=== PATIENT | female | born 1950 | race Caucasian/White ===

== ENCOUNTER 2018-02-24 10:10 | Outpatient (CLI) | payer MEDICARE, BC ==
[2018-02-24 17:46] LABS: BASOPHILS % (AUTO) 0.4 %; EOSINOPHILS # (AUTO) 0.2 10^3/uL (0.0-0.7); EOSINOPHILS % (AUTO) 3.5 %; HGB - HEMOGLOBIN 10.6 g/dL (12.0-16.0); LYMPHOCYTES # (AUTO) 2.1 10^3/uL (1.5-3.5); LYMPHOCYTES % (AUTO) 34.5 %; MEAN CORPUSCULAR HEMOGLOBIN 23.4 pg (27.0-31.0); MEAN CORPUSCULAR HGB CONC 31.9 g/dL (32.0-36.0); MEAN CORPUSCULAR VOLUME 73.5 fL (81.0-99.0); MEAN PLATELET VOLUME 7.9 fL (7.9-10.8); MONOCYTES # (AUTO) 0.5 10^3/uL (0.0-1.0); MONOCYTES % (AUTO) 7.6 %; NEUTROPHILS # (AUTO) 3.3 10^3/uL (1.5-6.6); PLT - PLATELET COUNT 404 10^3/uL (130-450); RED BLOOD COUNT 4.52 10^6/uL (4.20-5.40); RED CELL DISTRIBUTION WIDTH 17.8 % (12.0-15.0); WHITE BLOOD COUNT 6.2 x10^3/uL (4.8-10.8)
[2018-02-24 18:33] LABS: ALBUMIN/GLOBULIN RATIO 1.1 (1.0-2.2); ALKALINE PHOSPHATASE 70 IU/L (42-121); ALT ALANINE AMINOTRANSFERASE 17 IU/L (10-60); AST ASPARTATE AMINOTRANSFERASE 25 IU/L (10-42); BILIRUBIN,TOTAL 0.6 mg/dL (0.2-1.0); BUN - BLOOD UREA NITROGEN 12 mg/dL (6-20); CALCIUM 8.9 mg/dL (8.5-10.3); CARBON DIOXIDE - CO2 28 mmol/L (21-32); CHLORIDE 100 mmol/L (101-111); CHOL/HDL RATIO 3.3 (<4.4); CHOLESTEROL 228 mg/dL; CREATININE 0.7 mg/dL (0.4-1.0); GFR - MDRD 84 (>89); GLUCOSE 101 mg/dL (70-100); HDL CHOLESTEROL 70 mg/dL; LDL CHOLESTEROL,CALCULATED 128 mg/dL; LDL/HDL RATIO 1.8 (<4.4); SODIUM 136 mmol/L (135-145); TOTAL PROTEIN 7.5 g/dL (6.7-8.2); VLDL CHOLESTEROL 30 mg/dL
== END 2018-02-24 10:11 | disposition home or self-care (01) ==
LOC: LAB.F 10:10
PROVIDERS: ATTEND Nurse Practitioner Family
DX: E78.5 Hyperlipidemia, unspecified (principal); F32.9 Major depressive disorder, single episode, unspecified
CPT/HCPCS: 36415; 80053; 80061; 83721; 84443; 85025

== ENCOUNTER 2018-03-11 15:22 | Outpatient (CLI) | payer MEDICARE, BC ==
[2018-03-11 17:34] LABS: BASOPHILS # (AUTO) 0.1 10^3/uL (0.0-0.1); BASOPHILS % (AUTO) 1.2 %; EOSINOPHILS # (AUTO) 0.2 10^3/uL (0.0-0.7); EOSINOPHILS % (AUTO) 3.1 %; HGB - HEMOGLOBIN 10.9 g/dL (12.0-16.0); LYMPHOCYTES # (AUTO) 2.1 10^3/uL (1.5-3.5); LYMPHOCYTES % (AUTO) 36.8 %; MEAN CORPUSCULAR HGB CONC 31.7 g/dL (32.0-36.0); MEAN CORPUSCULAR VOLUME 75.7 fL (81.0-99.0); MEAN PLATELET VOLUME 7.9 fL (7.9-10.8); MONOCYTES # (AUTO) 0.5 10^3/uL (0.0-1.0); MONOCYTES % (AUTO) 8.2 %; NEUTROPHILS # (AUTO) 2.9 10^3/uL (1.5-6.6); NEUTROPHILS % (AUTO) 50.7 %; PLT - PLATELET COUNT 397 10^3/uL (130-450); RED BLOOD COUNT 4.52 10^6/uL (4.20-5.40); RED CELL DISTRIBUTION WIDTH 17.7 % (12.0-15.0); WHITE BLOOD COUNT 5.8 x10^3/uL (4.8-10.8)
== END 2018-03-11 15:23 | disposition home or self-care (01) ==
LOC: LAB.F 15:22
PROVIDERS: ATTEND Nurse Practitioner Family
DX: D64.9 Anemia, unspecified (principal)
CPT/HCPCS: 36415; 85025

== ENCOUNTER 2018-03-18 13:45 | Outpatient (CLI) | payer MEDICARE, BC ==
[2018-03-18 17:47] LABS: % IRON SATURATION 10 % (20-50); IRON 38 ug/dL (28-170); TOTAL IRON BINDING CAPACITY 391 ug/dL (250-450); TRANSFERRIN 279 mg/dL (192-382)
[2018-03-18 18:05] LABS: FOLATE 20.11 ng/mL (5.90 - >24.8)
== END 2018-03-18 13:46 | disposition home or self-care (01) ==
LOC: LAB.F 13:45
PROVIDERS: ATTEND Nurse Practitioner Family
DX: D64.9 Anemia, unspecified (principal)
CPT/HCPCS: 36415; 82607; 82746; 83540; 84466

== ENCOUNTER 2018-04-15 10:57 | Outpatient (CLI) | payer MEDICARE, BC ==
--- NOTE | 2018-04-15 16:51 | XRAY Report ---
Procedure Date: 04/15/2018 Accession Number: [id number] / [id number] Procedure: XRS - Knee 3 View RT CPT Code: FULL RESULT: EXAM: Knee 3 View RT DATE: 04/15/2018 11:12 AM CLINICAL HISTORY: KNEE PAIN, RIGHT, ACUTE, CHRONIC COMPARISON: None. TECHNIQUE: 3 views. FINDINGS: Bones: Normal. No fractures or bone lesions. Joints: Narrowing predominantly of the medial femoral tibial compartment. Soft Tissues: Normal. No soft tissue swelling. IMPRESSION: Mild osteoarthrosis most pronounced in the medial femoral tibial compartment. No acute fracture or dislocation. RADIA
== END 2018-04-15 10:58 | disposition home or self-care (01) ==
LOC: DI.S 10:57
PROVIDERS: ATTEND Nurse Practitioner Family
DX: M17.11 Unilateral primary osteoarthritis, right knee (principal)

== ENCOUNTER 2018-11-24 08:00 | Outpatient (CLI) | payer BC, MEDICARE ==
[2018-11-24 17:36] LABS: BILIRUBIN,URINE NEGATIVE (NEGATIVE); GLUCOSE, URINE (UA) NEGATIVE (NEGATIVE); KETONES,URINE (UA) NEGATIVE (NEGATIVE); LEUKOCYTE ESTERASE, URINE LARGE (NEGATIVE); NITRITE,URINE POSITIVE (NEGATIVE); OCCULT BLOOD,URINE SMALL (NEGATIVE); PH,URINE 6.5 PH (5.0-7.5); PROTEIN,URINE 100 mg/dL (NEGATIVE); UROBILINOGEN,URINE 0.2 (NORMAL) E.U./dL (NORMAL)
[2018-11-24 17:44] LABS: BACTERIA,URINE Moderate /HPF (None Seen); CLARITY,URINE CLOUDY (CLEAR); SQUAMOUS EPITHELIAL CELL,UR FEW Squamous (<= Few)
== END 2018-11-24 23:59 | disposition home or self-care (01) ==
LOC: LAB.R 08:00
PROVIDERS: ATTEND Nurse Practitioner Family
DX: N39.0 Urinary tract infection, site not specified (principal)
CPT/HCPCS: 81001; 87086; 87181

== ENCOUNTER 2019-06-26 08:00 | Outpatient (CLI) | payer MEDICARE | END 2019-06-26 08:01 | disposition home or self-care (01) | LOC: LAB.F 08:00 | PROVIDERS: ATTEND Physician Assistant Medical | DX: N39.0 Urinary tract infection, site not specified (principal) | CPT/HCPCS: 81002 ==

== ENCOUNTER 2019-06-26 15:20 | Outpatient (CLI) | payer MEDICARE | END 2019-06-26 15:21 | disposition home or self-care (01) | LOC: LAB.R 15:20 | PROVIDERS: ATTEND Physician Assistant Medical | DX: N39.0 Urinary tract infection, site not specified (principal) | CPT/HCPCS: 87086 ==

== ENCOUNTER 2019-07-27 17:08 | Emergency (ER) | payer MEDICARE ==
--- NOTE | 2019-07-27 17:40 | ED Physician Documentation ---
History of Present Illness - Stated complaint Stated Complaint: VOMITING BLOODY/NAUSEA - Chief complaint Chief Complaint: Abd Pain - Additonal information Additional information: This is a 68-year-old female who presents with blood in her vomit and stool for 36 hours. Patient states she began developing some generalized abdominal discomfort around 36 hours ago she is had multiple episodes of vomiting with bright red blood in it, and she is also had blood with her bowel movements. She states is been pretty constant over the last 36 hours. She is never had GI bleeding before. PD PAST MEDICAL HISTORY - Allergies Allergies/Adverse Reactions: Allergies Allergy/AdvReac Type Severity Reaction Status Date / Time No Known Drug Allergies Allergy Verified 07/27/19 17:31 Results - Vitals Vitals: Vital Signs - 24 hr 07/27/19 07/27/19 07/27/19 17:31 18:00 18:30 Temperature 37.1 C Heart Rate 83 77 74 Respiratory 18 21 15 Rate Blood Pressure 122/69 160/82 H 159/95 H O2 Saturation 95 99 95 07/27/19 07/27/19 19:00 19:51 Temperature 36.7 C Heart Rate 74 79 Respiratory 16 12 Rate Blood Pressure 162/79 H 166/83 H O2 Saturation 93 99 Oxygen O2 Source Room air - Labs Labs: Laboratory Tests 07/27/19 07/27/19 07/27/19 17:51 18:05 18:05 WBC 8.1 RBC 4.59 Hgb 12.7 Hct 39.6 MCV 86.3 MCH 27.7 MCHC 32.1 RDW 14.2 Plt Count 414 MPV 9.3 Neut # (Auto) 4.7 Lymph # (Auto) 2.4 [place] # (Auto) 0.7 Eos # (Auto) 0.1 Baso # (Auto) 0.1 Absolute Nucleated RBC 0.00 Nucleated RBC % 0.0 PT 12.9 H INR 1.1 Sodium Potassium Chloride Carbon Dioxide Anion Gap BUN Creatinine Estimated GFR (MDRD) Glucose Calcium Total Bilirubin AST ALT Alkaline Phosphatase Total Protein Albumin Globulin Albumin/Globulin Ratio Lipase Urine Color YELLOW Urine Clarity CLEAR Urine pH 8.5 H Ur Specific [place] 1.015 Urine Protein NEGATIVE Urine Glucose (UA) NEGATIVE Urine Ketones NEGATIVE Urine Occult Blood NEGATIVE Urine Nitrite NEGATIVE Urine Bilirubin NEGATIVE Urine Urobilinogen 0.2 (NORMAL) Ur Leukocyte Esterase TRACE H Urine RBC 0-5 Urine WBC 4-5 Ur Squamous Epith Cells RARE Squamous Urine Bacteria Rare Ur Microscopic Review INDICATED Urine Culture Comments INDICATED 07/27/19 18:05 WBC RBC Hgb Hct MCV MCH MCHC RDW Plt Count MPV Neut # (Auto) Lymph # (Auto) [place] # (Auto) Eos # (Auto) Baso # (Auto) Absolute Nucleated RBC Nucleated RBC % PT INR Sodium 137 Potassium 3.9 Chloride 100 L Carbon Dioxide 27 Anion Gap 10.0 BUN 10 Creatinine 0.7 Estimated GFR (MDRD) 84 L Glucose 108 H Calcium 9.7 Total Bilirubin 1.0 AST 23 ALT 19 Alkaline Phosphatase 73 Total Protein 8.0 Albumin 4.3 Globulin 3.7 Albumin/Globulin Ratio 1.2 Lipase 26 Urine Color Urine Clarity Urine pH Ur Specific [place] Urine Protein Urine Glucose (UA) Urine Ketones Urine Occult Blood Urine Nitrite Urine Bilirubin Urine Urobilinogen Ur Leukocyte Esterase Urine RBC Urine WBC Ur Squamous Epith Cells Urine Bacteria Ur Microscopic Review Urine Culture Comments Departure - Departure Disposition: Home, Self Care Clinical Impression: Bloody vomitus Qualifiers: Nausea presence: with nausea Qualified Code(s): K92.0 - Hematemesis Condition: Good Instructions: ED Abdominal Pain Unkn Cause, ED Hematochezia Stable Follow-Up: Ester Pandey PA-C [Primary Care Provider] - Within 3 Days Comments: You were seen today for some blood in your stool and vomit, Your blood counts appear stable we do not see signs of bleeding at this time. If you develop persistent bleeding, persistent vomiting, increasing abdominal pain, lightheadedness, generalized weakness, or other concerning symptoms please return to the emergency department. Otherwise please follow-up with your primary care provider as soon as possible for recheck and repeat labs. Your CT scan today had some incidental findings, you have a complex cyst on your left ovary, which should get a follow-up ultrasound, you also have a possible abnormality in your pancreas, which may need a follow-up MRI. Please review the CT scan with your primary care provider to review these findings.
[2019-07-27] MEDS ORDERED: ONDANSETRON 4 MG/2 ML VIAL IVP STA (17:51)
[2019-07-27 18:00] LABS: BILIRUBIN,URINE NEGATIVE (NEGATIVE); GLUCOSE, URINE (UA) NEGATIVE (NEGATIVE); KETONES,URINE (UA) NEGATIVE (NEGATIVE); LEUKOCYTE ESTERASE, URINE TRACE (NEGATIVE); NITRITE,URINE NEGATIVE (NEGATIVE); OCCULT BLOOD,URINE NEGATIVE (NEGATIVE); PH,URINE 8.5 PH (5.0-7.5); PROTEIN,URINE NEGATIVE (NEGATIVE); UROBILINOGEN,URINE 0.2 (NORMAL) E.U./dL (NORMAL)
[2019-07-27 18:02] LABS: CLARITY,URINE CLEAR (CLEAR)
[2019-07-27 18:10] LABS: BACTERIA,URINE Rare /HPF (None Seen); RBC,URINE 0-5 /HPF (0-5); SQUAMOUS EPITHELIAL CELL,UR RARE Squamous (<= Few)
[2019-07-27] MEDS ORDERED: IOVERSOL 320 100 ML VIAL IVP ONE ×2 (18:12→19:04)
[2019-07-27 18:24] LABS: BASOPHILS # (AUTO) 0.1 10^3/uL (0.0-0.1); BASOPHILS % (AUTO) 0.7 %; EOSINOPHILS # (AUTO) 0.1 10^3/uL (0.0-0.7); EOSINOPHILS % (AUTO) 1.6 %; HGB - HEMOGLOBIN 12.7 g/dL (12.0-16.0); LYMPHOCYTES # (AUTO) 2.4 10^3/uL (1.5-3.5); MEAN CORPUSCULAR HEMOGLOBIN 27.7 pg (27.0-31.0); MEAN CORPUSCULAR HGB CONC 32.1 g/dL (32.0-36.0); MEAN CORPUSCULAR VOLUME 86.3 fL (81.0-99.0); MEAN PLATELET VOLUME 9.3 fL (7.9-10.8); MONOCYTES # (AUTO) 0.7 10^3/uL (0.0-1.0); MONOCYTES % (AUTO) 8.8 %; NEUTROPHILS # (AUTO) 4.7 10^3/uL (1.5-6.6); NEUTROPHILS % (AUTO) 58.4 %; PLT - PLATELET COUNT 414 10^3/uL (130-450); RED BLOOD COUNT 4.59 10^6/uL (4.20-5.40); RED CELL DISTRIBUTION WIDTH 14.2 % (12.0-15.0); WHITE BLOOD COUNT 8.1 x10^3/uL (4.8-10.8)
[2019-07-27 18:30] LABS: INR 1.1 (0.8-1.2); PT - PROTHROMBIN TIME 12.9 secs (9.9-12.6)
[2019-07-27 18:35] LABS: ALBUMIN 4.3 g/dL (3.2-5.5); ALBUMIN/GLOBULIN RATIO 1.2 (1.0-2.2); CALCIUM 9.7 mg/dL (8.5-10.3); CREATININE 0.7 mg/dL (0.4-1.0)
--- NOTE | 2019-07-27 19:40 | CT Report ---
Reason: Diffuse abdominal pain, hematemesis and hematoche Procedure Date: 07/27/2019 Accession Number: [id number] / [id number] Procedure: CT - Abdomen/Pelvis W CPT Code: Final Report FULL RESULT: EXAM: CT ABDOMEN AND PELVIS EXAM DATE: 07/27/2019 07:03 PM. CLINICAL HISTORY: Diffuse abdominal pain, hematemesis and hematochezia. COMPARISONS: None. TECHNIQUE: Routine helical CT imaging was performed through the abdomen and pelvis. IV contrast: 100 cc Optiray 320. Enteric contrast: No. Reconstructions: Coronal and sagittal. In accordance with CT protocol optimization, one or more of the following dose reduction techniques were utilized for this exam: automated exposure control, adjustment of mA and/or KV based on patient size, or use of iterative reconstructive technique. FINDINGS: Lung Bases: Unremarkable. Liver: There is a 2.5 cm cyst in hepatic segment 7 (series 3, image 17) and a 2.0 cm cyst in segment 4B (series 3, image 25). Additional subcentimeter hypoattenuating foci of present, too small to characterize. Gallbladder/Bile Ducts: Unremarkable. Spleen: Within normal limits. Pancreas: There is fairly diffuse hypoattenuation of the pancreatic head and proximal body without upstream ductal dilation (series 3, image 24). Suspect this represent sequela of fatty infiltration. Adrenal Glands: No nodules. Kidneys: Relatively symmetric in size and enhancement. No focal lesions or hydronephrosis. Peritoneal Cavity/Bowel: No evidence of bowel obstruction or inflammation. Appendix is within normal limits. Pelvic Organs: There is a 3.8 x 3.2 cm left ovarian cyst, which has nodular soft tissue anteriorly (series 3, image 69), which could represent part of the ovarian stroma or mural nodularity. A septation is also present. Right ovary is unremarkable. Uterus is surgically absent. Urinary bladder is decompressed. No pelvic adenopathy or free fluid. Vasculature: No abdominal aortic aneurysm. Bones: Degenerative changes in the lumbar spine. No suspicious osseous lesion. Other: No retroperitoneal adenopathy. IMPRESSION: 1. No evidence of acute infectious or inflammatory process in the abdomen or pelvis. 2. A 3.8 cm complex left ovarian cyst is demonstrated. Nodular soft tissue along the anterior aspect could represent ovarian stroma or mural nodularity. Ovarian neoplasm cannot be excluded. Further evaluation with pelvic ultrasound is recommended. 3. Fairly diffuse hypoattenuation of the pancreatic head and proximal body without upstream ductal dilation. Given the absence of ductal obstruction, suspect this represents regional fatty infiltration. However, consider correlation with serum lipase to exclude early focal pancreatitis. In addition, suggest follow-up with pancreas protocol MRI in 4 weeks to ensure stability and exclude atypical, infiltrative lesion. RADIA
[2019-07-27 19:52] VITALS: BP 166/83
== END 2019-07-27 20:08 | disposition home or self-care (01) ==
LOC: ED 17:08
DX: K92.0 Hematemesis (principal)
CPT/HCPCS: 36415; 74177; 80053; 81001; 83690; 85025; 85610; 87086; 96374; 99283; Q9967; 81003

== ENCOUNTER 2019-08-18 14:05 | Outpatient (CLI) | payer MEDICARE ==
--- NOTE | 2019-08-18 17:07 | Ultrasound Report ---
Reason: LT OVARIAN CYST Procedure Date: 08/18/2019 Accession Number: [id number] / [id number] Procedure: US - Pelvic w/Transvaginal CPT Code: Final Report FULL RESULT: EXAM: PELVIC ULTRASOUND EXAM DATE: 08/18/2019 04:00 PM. CLINICAL HISTORY: Left ovarian cyst. COMPARISON: ABDOMEN/PELVIS W/ 07/27/2019 6:53 PM. TECHNIQUE: Realtime transabdominal pelvic scan performed to identify the uterus and adnexa and as an overview of other pelvic structures, followed by transvaginal scan to provide greater detail of the uterus and adnexa, with static image documentation. FINDINGS: Uterus: Removed. Right Ovary: Volume 3 cc. Normal echotexture and blood flow. Left Ovary: Volume 21 cc. Containing a mildly complex 3.2 x 2.5 x 2.8 cm cyst with a thin septation and vascular wall. No enlarged vascular nodules identified. Free Fluid: None. Other: None. IMPRESSION: 1. Complex approximately 3 cm left ovarian cyst with thin septations and a perceptible vascular wall. This is indeterminate for early ovarian neoplasm. Gynecologic follow-up suggested for decision of observation and imaging surveillance or resection. 2. Post hysterectomy. RADIA
== END 2019-08-18 14:06 | disposition home or self-care (01) ==
LOC: DI 14:05
PROVIDERS: ATTEND Family Medicine
DX: N83.292 Other ovarian cyst, left side (principal); Z90.710 Acquired absence of both cervix and uterus
CPT/HCPCS: 76830; 76856

== ENCOUNTER 2019-09-14 16:17 | Outpatient (CLI) | payer MEDICARE | END 2019-09-14 16:18 | disposition home or self-care (01) | LOC: LAB 16:17 | PROVIDERS: ATTEND Obstetrics & Gynecology | DX: N83.202 Unspecified ovarian cyst, left side (principal) | CPT/HCPCS: 36415; 82378; 86304 ==

== ENCOUNTER 2019-10-16 14:57 | Outpatient (CLI) | payer MEDICARE ==
[2019-10-16 18:30] LABS: ALBUMIN/GLOBULIN RATIO 1.2 (1.0-2.2); BILIRUBIN,TOTAL 0.8 mg/dL (0.2-1.0); CALCIUM 9.1 mg/dL (8.5-10.3); CREATININE 0.6 mg/dL (0.4-1.0); TOTAL PROTEIN 7.4 g/dL (6.7-8.2)
== END 2019-10-16 14:58 | disposition home or self-care (01) ==
LOC: LAB.S 14:57
PROVIDERS: ATTEND Physician Assistant Medical
DX: D49.0 Neoplasm of unspecified behavior of digestive system (principal)
CPT/HCPCS: 36415; 80053; 82150; 83690

== ENCOUNTER 2019-11-23 14:40 | Outpatient (CLI) | payer MEDICARE ==
[2019-11-23 15:07] LABS: BASOPHILS % (AUTO) 0.4 %; EOSINOPHILS % (AUTO) 0.3 %; LYMPHOCYTES # (AUTO) 0.9 10^3/uL (1.5-3.5); LYMPHOCYTES % (AUTO) 8.7 %; MEAN CORPUSCULAR HEMOGLOBIN 27.7 pg (27.0-31.0); MEAN CORPUSCULAR HGB CONC 32.6 g/dL (32.0-36.0); MEAN CORPUSCULAR VOLUME 85.1 fL (81.0-99.0); MEAN PLATELET VOLUME 8.8 fL (7.9-10.8); MONOCYTES # (AUTO) 0.2 10^3/uL (0.0-1.0); MONOCYTES % (AUTO) 1.9 %; NEUTROPHILS # (AUTO) 9.6 10^3/uL (1.5-6.6); NEUTROPHILS % (AUTO) 88.1 %; PLT - PLATELET COUNT 372 10^3/uL (130-450); RED BLOOD COUNT 4.69 10^6/uL (4.20-5.40); RED CELL DISTRIBUTION WIDTH 14.2 % (12.0-15.0); WHITE BLOOD COUNT 10.9 x10^3/uL (4.8-10.8)
[2019-11-23 15:19] LABS: ALBUMIN 4.3 g/dL (3.2-5.5); ALBUMIN/GLOBULIN RATIO 1.2 (1.0-2.2); BILIRUBIN,TOTAL 0.7 mg/dL (0.2-1.0); CALCIUM 9.8 mg/dL (8.5-10.3); CREATININE 0.7 mg/dL (0.4-1.0); TOTAL PROTEIN 7.8 g/dL (6.7-8.2)
== END 2019-11-23 14:41 | disposition home or self-care (01) ==
LOC: LAB 14:40
PROVIDERS: ATTEND Obstetrics & Gynecology
DX: Z01.812 Encounter for preprocedural laboratory examination (principal); N83.202 Unspecified ovarian cyst, left side; D64.9 Anemia, unspecified
CPT/HCPCS: 36415; 80053; 85025; 93005

== ENCOUNTER 2019-11-29 07:14 | Day surgery (SDC) | payer MEDICARE ==
[2019-11-29] MEDS ORDERED: LACTATED RINGERS 1,000 ML IV ONE ×2 (07:18→12:01)
[2019-11-29] MEDS ORDERED: CEFAZOLIN SODIUM IN 0.9 % NACL 2 GM/100 ML BAG IV ONE (07:39)
--- NOTE | 2019-11-29 08:53 | ANESTHESIA ---
Pre-Anesthesia VS, & Labs - Diagnosis bilateral complex ovarian cysts - Procedure laprascopic bilateral salpingoophrectomy Vital Signs: Temp Pulse Resp BP Pulse Ox 36.5 C 81 18 170/73 H 99 11/29/19 07:26 11/29/19 07:26 11/29/19 07:26 11/29/19 07:26 11/29/19 07:26 Height 5 ft 3 in Weight (kg) 103.1 kg Body Mass Index 40.7 - NPO >8 hours - Is Patient ?: No - Lab Results Current Lab Results: Laboratory Tests 11/29/19 07:46: Blood Type Recheck A POSITIVE 11/29/19 07:42: Blood Type A POSITIVE, Antibody Screen NEGATIVE Home Medications and Allergies Home Medications: Ambulatory Orders Ascorbic Acid [Vitamin C] 500 mg PO DAILY 11/23/19 Betamethasone Valerate 1 applic TP PRN PRN 11/23/19 Ferrous Sulfate 325 mg PO DAILY 11/23/19 Nystatin Cream [Mycostatin Cream] 1 applic TOP ONCE PRN 11/23/19 Oxybutynin Chloride 5 mg PO BID PRN 11/23/19 Pantoprazole Sodium [Protonix] 40 mg PO DAILY 11/23/19 Sertraline HCl 100 mg PO DAILY 11/23/19 Simvastatin 40 mg PO QPM 11/23/19 Trazodone HCl 150 mg PO QPM PRN 11/23/19 Venlafaxine HCl 37.5 mg PO DAILY 11/23/19 estradioL [Estradiol] 1 applic VG PRN PRN 11/23/19 Ascorbic Acid [Vitamin C] 500 mg PO DAILY 11/23/19 Betamethasone Valerate 1 applic TP PRN PRN 11/23/19 Ferrous Sulfate 325 mg PO DAILY 11/23/19 Nystatin Cream [Mycostatin Cream] 1 applic TOP ONCE PRN 11/23/19 Oxybutynin Chloride 5 mg PO BID PRN 11/23/19 Pantoprazole Sodium [Protonix] 40 mg PO DAILY 11/23/19 Sertraline HCl 100 mg PO DAILY 11/23/19 Simvastatin 40 mg PO QPM 11/23/19 Trazodone HCl 150 mg PO QPM PRN 11/23/19 Venlafaxine HCl 37.5 mg PO DAILY 11/23/19 estradioL [Estradiol] 1 applic VG PRN PRN 11/23/19 Allergies/Adverse Reactions: Allergies Allergy/AdvReac Type Severity Reaction Status Date / Time shellfish derived Allergy Anaphylaxis Verified 11/23/19 14:41 Anes History & Medical History - Anesthetic History Anesthesia Complications: reports: No previous complications - Medical History Cardiovascular: reports: High cholesterol, Other (denies any chest pain or other cardiac symptoms) Pulmonary: reports: None Gastrointestinal: reports: GERD, Chronic constipation, Ulcerative colitis Urinary: reports: Chronic bladder infection Neuro: reports: None Musculoskeletal: reports: Osteoarthritis Endocrine/Autoimmune: reports: None Blood Disorders: reports: Anemia Skin: reports: Psoriasis Smoking Status: Former smoker (quit 1986) Psychosocial: reports: Other (recovering alcohol/drug addict) Other Past Medical History: Did 10 weeks of chemotherapy for breast cancer 2013 - Surgical History General: Colonoscopy Eyes Ears Nose Throat (EENT): Tonsil/Adenoidectomy Gynecologic: Hysterectomy, Mastectomy Results - EKG Results EKG Comparison: Reviewed EKG (Reviewed with internal medicine and surgeon. Patient completely asymptomatic.) Exam General: Alert, Oriented x3, Cooperative, No acute distress Dental: Poor dentition, Other (multiple missing teeth) Mouth Openin Fingerbreadth Neck Mobility: Normal Mallampati classification: II Thyromental Distance: greater than 6 cm Respiratory: Lungs clear, Normal breath sounds, No respiratory distress, No accessory muscle use Cardiovascular: Regular rate, Normal S1, Normal S2, No murmurs Mental/Cognitive Status: Alert/Oriented X3, Normal for patient Plan Anesthesia Type: General Consent for Procedure(s) Verified and Reviewed: Yes Code Status: Attempt Resuscitation ASA classification: 2-Mild systemic disease Is this case an emergency?: No
--- NOTE | 2019-11-29 09:44 | PROVIDER PROGRESS NOTE ---
Subjective - Prog Note Date Prog Note Date: 11/29/19 Prog Note Time: 09:41 - Subjective Subjective: EKG showed possibility of old anterior TX. Pt ammon symptoms of PRior TX. Reviewed with IM and anaesthesia. Risk of 1.1% reviewed with the Pt. will precede. Objective - Vital Signs/Intake & Output Vital Signs: Vital Signs x48h Temp Pulse Resp BP Pulse Ox 11/29/19 07:26 36.5 C 81 18 170/73 H 99 - Lab Results Other Labs: Lab Results x24hrs 11/29/19 11/29/19 Range/Units 07:46 07:42 Blood Type A POSITIVE Blood Type Recheck A POSITIVE Antibody Screen NEGATIVE
[2019-11-29] MEDS ORDERED: BUPIVACAINE 0.5% PF 30 ML VIAL ONE (09:52)
[2019-11-29] MEDS ORDERED: LIDOCAINE 2%-EPI 1:100000 20 ML MDV ONE (09:52)
[2019-11-29] MEDS ORDERED: fentaNYL 100 MCG/2 ML VIAL IVP ONE (10:19)
[2019-11-29] MEDS ORDERED: ROCURONIUM 50 MG/5 ML VIAL IVP ONE (10:19)
[2019-11-29] MEDS ORDERED: GLYCOPYRROLATE 1 MG/5 ML VIAL IVP ONE (10:19)
[2019-11-29] MEDS ORDERED: NEOSTIGMINE 1 MG/1 ML 10 ML MDV IVP ONE (10:19)
[2019-11-29] MEDS ORDERED: MIDAZOLAM 2 MG/2 ML VIAL IVP ONE (10:19)
[2019-11-29] MEDS ORDERED: METOCLOPRAMIDE 10 MG/2 ML VIAL IVP ONE (10:19)
[2019-11-29] MEDS ORDERED: ACETAMINOPHEN 1,000 MG/100 ML 100 ML IV ONE (10:19)
[2019-11-29] MEDS ORDERED: PROPOFOL 200 MG/20 ML VIAL IVP ONE (10:19)
[2019-11-29] MEDS ORDERED: ONDANSETRON 4 MG/2 ML VIAL IVP ONE (10:19)
[2019-11-29] MEDS ORDERED: LIDOCAINE MPF 1%-EPI 1:200000 30 ML VIAL SUBQ ONE (13:11)
[2019-11-29] MEDS ORDERED: BUPIVACAINE 0.5% PF 30 ML VIAL INFIL ONE (13:12)
[2019-11-29] MEDS ORDERED: ONDANSETRON 4 MG/2 ML VIAL IVP PRN (13:51)
--- NOTE | 2019-11-29 13:59 | OPERATIVE REPORT ---
Operative Report - General Procedure Date: 11/29/19 Planned Procedure: Laproscopic BSO Pre-Op Diagnosis: complex ovarian cyst Procedure Performed: Laproscopic BSO lysis of adhesions cystoscopy Post Op Diagnosis: Pelvic adhesions - Procedure Note Primary Surgeon: Jakub Courtney MD Secondary Surgeon: Nubia Vyas MD Anesthesia Provider: Claudia Munguia Anesthesia Technique: General ET tube Pathology: Bilateral tubes and ovaries IV Fluids (mL): 1,400 Estimated Blood Loss (mL): 100 Urine Output (mL): 50 Complications: none - Other Other Information/Narrative: [id number]
[2019-11-29] MEDS ORDERED: KETOROLAC 15 MG/ML VIAL ONE (14:05)
[2019-11-29] MEDS ORDERED: fentaNYL 100 MCG/2 ML VIAL ONE (14:07)
[2019-11-29] MEDS: oxyCODONE 5 MG TABLET PO PRN ×2 (15:39→20:29)
[2019-11-29] MEDS: LACTATED RINGERS 1,000 ML IV SCH (17:07)
--- NOTE | 2019-11-29 18:43 | OPERATIVE REPORT ---
DATE OF SERVICE: 11/29/2019 Physician: Jakub Courtney MD PREOPERATIVE DIAGNOSIS: Complex ovarian cyst, as well as simple ovarian cyst. POSTOPERATIVE DIAGNOSIS: Bilateral pelvic adhesions. PROCEDURE: Laparoscopic lysis of adhesions with bilateral salpingo-oophorectomy and cystoscopy. SURGEON: Jakub Courtney MD SIZE MARKER: Nubia Vyas MD ANESTHESIA: Lesley Yoon CRNA. ANESTHETIC: General via endotracheal tube. IV FLUIDS: 1400 mL ESTIMATED BLOOD LOSS: 100 mL URINE OUTPUT: 50 mL FINDINGS: Upon entering the abdominal cavity, there was evidence of very dense bilateral pelvic adhesions. These were of the bowel to the anterior abdominal wall as well as to the adnexa. The ovaries appeared to be within normal limits. These were also adhered. The appendix appeared to be normal. Upon performing cystoscopy, there was evidence of good flow from both ureteral jets. DESCRIPTION OF PROCEDURE: Following adequate endotracheal anesthesia, patient was placed in a dorsal lithotomy position in [facility]. At this point, pelvic examination under anesthesia was performed. The uterus was not palpable, as it is surgically absent. At this point, she was prepped and draped in the usual fashion. A timeout was performed. A speculum was placed in the vagina. Sponge stick was placed for pelvic manipulation. At this point, following local anesthesia with 0.25% Marcaine with 1% lidocaine with epinephrine injected in the subumbilical area, a #11 blade was used to incise the subumbilical area. This was then pierced with a 15 cm x 5 mm trocar and sheath under direct visualization. Upon inspection, there is no evidence of any injury at site of insertion. Two additional ports were placed, both in the left and right lower quadrant. Care was taken to place these under direct visualization. These were done following local anesthesia, as well as a skin incision with a #11 blade. At this point, the pelvis was inspected with the aforementioned findings. The left colon was adhered to the left pelvic sidewall. The left adnexa was also adherent to the colon. The right tube and ovary were also adherent. The appendix appeared to be normal. At this point, utilizing LigaSure, scissors, as well as blunt dissection, the sigmoid colon was dissected off the left pelvic sidewall, as well as from around the left adnexa. This was somewhat difficult secondary to the density of the adhesions as well as the amount. Following isolating the tube and ovary on the left side, the infundibulopelvic ligament was cross clamped with the LigaSure and then cauterized and divided. The mesosalpinx, as well as ovary was then cross clamped with the LigaSure. Care was taken to exclude any ureter or bowel. This was then cauterized and transected. This was brought out through an Endopouch in the right lower quadrant. There were some concerns about the bowel, and general surgery was asked to come and consult. They inspected the bowel and did not see any evidence of any injury at this time. The right side was also densely adherent, so utilizing the LigaSure, as well as cold scissors, the bowel was dissected free from the pelvic sidewall. The appendix was visualized and noted to be free of any disease. Following isolating the tube and ovary, the infundibulopelvic ligament was clamped, cauterized and ligated utilizing the LigaSure. There was care taken to stay as close to the ovary and tube as possible to minimize risk of injury to the ureter. The tube and ovary were totally freed, removed and placed in an EndoCatch and removed from the right lower quadrant. The area was inspected for bleeding, none was noted. The pelvis was then irrigated with copious amounts of sterile. There was no evidence of any physical bleeding; however, there was some oozing from the left hand side. Surgicel was placed over this, and there was no evidence of any further bleeding. Because of the ureters location and proximity to the surgery, a cystoscopy was performed. There was evidence of brisk flow from both ureteral jets on both sides. During the procedure, Dr. Vyas was instrumental in helping with retraction, dissection, as well as ligation and removal of the left tube and ovary. Her help was necessary, as well as her skill set. TD: 11/29/2019 14:10 FRANCISCA
[2019-11-30] MEDS: oxyCODONE 5 MG TABLET PO PRN ×3 (01:13→09:43)
[2019-11-30] MEDS: LACTATED RINGERS 1,000 ML IV SCH (02:46)
[2019-11-30 08:18] VITALS: BP 91/49
--- NOTE | 2019-11-30 08:50 | PROVIDER PROGRESS NOTE ---
Subjective - Prog Note Date Prog Note Date: 11/30/19 Prog Note Time: 08:49 - Subjective Pt reports feeling: Improved (Pain 2/10 voiding good pain control) Objective - Vital Signs/Intake & Output Reviewed Vital Signs: Yes Vital Signs: Vital Signs x48h Temp Pulse Resp BP Pulse Ox 11/30/19 08:17 36.8 C 81 20 91/49 L 98 11/30/19 05:00 37.3 C 85 16 125/48 L 96 Intake & Output: Intake & Output 11/27/19 11/28/19 11/29/19 11/30/19 23:59 23:59 23:59 23:59 Intake Total 1290 965 Output Total 150 450 Balance 1140 515 - Objective General Appearance: positive: No acute distress, Alert Assessment/Plan - Problem List (1) S/P bilateral salpingo-oophorectomy Impression: POD #1 doing well Send home
== END 2019-11-30 09:51 | disposition home or self-care (01) ==
LOC: SDS 07:14 → MS2 15:02 → SDS 11-30 09:51
PROVIDERS: ATTEND Obstetrics & Gynecology
PROC: 0UT74ZZ Resection of Bilateral Fallopian Tubes, Percutaneous Endoscopic Approach (ICD-10-PCS; 2019-11-29)
PROC: 0UT24ZZ Resection of Bilateral Ovaries, Percutaneous Endoscopic Approach (ICD-10-PCS; principal; 2019-11-29 09:45)
DX: N83.202 Unspecified ovarian cyst, left side (principal); N83.201 Unspecified ovarian cyst, right side; N83.8 Other noninflammatory disorders of ovary, fallopian tube and broad ligament; N99.4 Postprocedural pelvic peritoneal adhesions; E78.5 Hyperlipidemia, unspecified; K21.9 Gastro-esophageal reflux disease without esophagitis; K59.09 Other constipation; K51.90 Ulcerative colitis, unspecified, without complications; N30.20 Other chronic cystitis without hematuria; R32 Unspecified urinary incontinence; D64.9 Anemia, unspecified; L40.9 Psoriasis, unspecified; F41.8 Other specified anxiety disorders; M17.11 Unilateral primary osteoarthritis, right knee; Z87.891 Personal history of nicotine dependence; Z85.3 Personal history of malignant neoplasm of breast; Z85.41 Personal history of malignant neoplasm of cervix uteri; Z90.710 Acquired absence of both cervix and uterus; Z90.13 Acquired absence of bilateral breasts and nipples
CPT/HCPCS: 58661; 86850; 86900; 86901; A9270; J0690; J7120

== ENCOUNTER 2021-07-21 12:06 | Outpatient (CLI) | payer MEDICARE, MEDICAID ==
[2021-07-21 15:07] LABS: BASOPHILS # (AUTO) 0.1 10^3/uL (0.0-0.1); EOSINOPHILS # (AUTO) 0.2 10^3/uL (0.0-0.7); EOSINOPHILS % (AUTO) 2.3 %; HCT - HEMATOCRIT 40.4 % (37.0-47.0); HGB - HEMOGLOBIN 12.9 g/dL (12.0-16.0); LYMPHOCYTES # (AUTO) 2.3 10^3/uL (1.5-3.5); LYMPHOCYTES % (AUTO) 32.5 %; MEAN CORPUSCULAR HEMOGLOBIN 28.2 pg (27.0-31.0); MEAN CORPUSCULAR HGB CONC 31.9 g/dL (32.0-36.0); MEAN CORPUSCULAR VOLUME 88.4 fL (81.0-99.0); MEAN PLATELET VOLUME 9.4 fL (7.9-10.8); MONOCYTES # (AUTO) 0.6 10^3/uL (0.0-1.0); NEUTROPHILS % (AUTO) 56.1 %; PLT - PLATELET COUNT 422 10^3/uL (130-450); RED BLOOD COUNT 4.57 10^6/uL (4.20-5.40); RED CELL DISTRIBUTION WIDTH 14.1 % (12.0-15.0); WHITE BLOOD COUNT 7.1 x10^3/uL (4.8-10.8)
[2021-07-21 15:17] LABS: ALBUMIN 4.3 g/dL (3.2-5.5); ALBUMIN/GLOBULIN RATIO 1.2 (1.0-2.2); ALKALINE PHOSPHATASE 63 IU/L (42-121); ALT ALANINE AMINOTRANSFERASE 16 IU/L (10-60); AST ASPARTATE AMINOTRANSFERASE 17 IU/L (10-42); BILIRUBIN,TOTAL 0.9 mg/dL (0.2-1.0); BUN - BLOOD UREA NITROGEN 9 mg/dL (6-20); CALCIUM 9.6 mg/dL (8.5-10.3); CARBON DIOXIDE - CO2 28 mmol/L (21-32); CHLORIDE 99 mmol/L (101-111); CHOL/HDL RATIO 3.1 (<4.4); CHOLESTEROL 239 mg/dL; CREATININE 0.6 mg/dL (0.4-1.0); GFR - MDRD 99 (>89); GLUCOSE 104 mg/dL (70-100); HDL CHOLESTEROL 78 mg/dL; LDL CHOLESTEROL,CALCULATED 133 mg/dL; LDL/HDL RATIO 1.7 (<4.4); POTASSIUM 4.1 mmol/L (3.5-5.0); SODIUM 138 mmol/L (135-145); TOTAL PROTEIN 7.8 g/dL (6.7-8.2); TRIGLYCERIDES 142 mg/dL; VLDL CHOLESTEROL 28 mg/dL
[2021-07-21 15:25] LABS: THYROID STIMULATING HORMONE 3.2 uIU/mL (0.34-5.60)
== END 2021-07-21 12:07 | disposition home or self-care (01) ==
LOC: LAB.S 12:06
PROVIDERS: ATTEND Registered Nurse
DX: F41.9 Anxiety disorder, unspecified (principal); F32.A Depression, unspecified; D64.9 Anemia, unspecified; E78.5 Hyperlipidemia, unspecified; Z13.29 Encounter for screening for other suspected endocrine disorder
CPT/HCPCS: 36415; 80053; 80061; 83721; 84443; 85025

== ENCOUNTER 2021-10-07 13:52 | Outpatient (CLI) | payer MEDICARE, MEDICAID ==
--- NOTE | 2021-10-07 16:55 | XRAY Report ---
PROCEDURE: Hand 3 View LT INDICATIONS: LEFT THUMB MASS TECHNIQUE: 3 views of the hand(s) acquired. COMPARISON: None FINDINGS: Bones: No fractures or dislocations. No suspicious bony lesions. Scattered IP degenerative narrowi ng. Soft tissues: No suspicious soft tissue calcifications. IMPRESSION: No osseous abnormality. If concern persists for mass lesion, MRI is recommended. Reviewed by: Yeny Mistry MD on 10/07/2021 4:53 PM PST Approved by: Yeny Mistry MD on 10/07/2021 4:53 PM PST Station ID: [id number]
== END 2021-10-07 13:53 | disposition home or self-care (01) ==
LOC: DI.WOS 13:52
PROVIDERS: ATTEND Physician Assistant
DX: R22.32 Localized swelling, mass and lump, left upper limb (principal)

== ENCOUNTER 2022-09-03 10:50 | Day surgery (SDC) | payer MEDICARE, MEDICAID ==
[~2022-09-03 10:50] MED LIST: CYCLOPENTOLATE 1% OPHTH DROPS 2 ML ONE; KETOROLAC 0.45% OPHTH DROPS ONE; PHENYLEPHRINE 2.5% OPHTH 2 ML DROPS ONE; PROPARACAINE 0.5% OPHTH DROPS 15 ML ONE
--- NOTE | 2022-09-03 12:15 | ANESTHESIA ---
Pre-Anesthesia VS, & Labs - Diagnosis right eye nuclear cataract - Procedure right eye cataract extraction with IOL implant Vital Signs: Temp Pulse Resp BP Pulse Ox O2 Flow Rate 36.9 C 80 16 155/67 H 96 09/03/22 11:05 09/03/22 11:05 09/03/22 11:05 09/03/22 11:05 09/03/22 11:05 Height: 5 ft 3 in Weight (kg): 106.1 kg Body Mass Index: 41.4 BMI Classification: Morbidly Obese - NPO >8 hours - Is Patient ?: No Home Medications and Allergies Ascorbic Acid [Vitamin C] 500 mg PO DAILY 11/23/19 Betamethasone Valerate 1 applic TP PRN PRN 11/23/19 Ferrous Sulfate 325 mg PO DAILY 11/23/19 Nystatin Cream [Mycostatin Cream] 1 applic TOP ONCE PRN 11/23/19 Oxybutynin Chloride 5 mg PO BID PRN 11/23/19 Pantoprazole Sodium [Protonix] 40 mg PO DAILY 11/23/19 Sertraline HCl 100 mg PO DAILY 11/23/19 Simvastatin 40 mg PO QPM 11/23/19 Trazodone HCl 150 mg PO QPM PRN 11/23/19 Venlafaxine HCl 37.5 mg PO DAILY 11/23/19 estradioL [Estradiol] 1 applic VG PRN PRN 11/23/19 Allergies/Adverse Reactions: Allergies Allergy/AdvReac Type Severity Reaction Status Date / Time shellfish derived Allergy Anaphylaxis Verified 11/23/19 14:41 Anes History & Medical History - Anesthetic History Anesthesia Complications: reports: No previous complications - Medical History Cardiovascular: reports: High cholesterol Pulmonary: reports: None Gastrointestinal: reports: GERD, Chronic constipation, Ulcerative colitis Urinary: reports: Chronic bladder infection Neuro: reports: None Musculoskeletal: reports: Osteoarthritis Endocrine/Autoimmune: reports: None Blood Disorders: reports: Anemia Skin: reports: Psoriasis Smoking Status: Former smoker (quit 1986) Psychosocial: reports: Depression, Anxiety History of Cancer?: Yes (chemo and radiation) - Surgical History General: reports: Colonoscopy Eyes Ears Nose Throat (EENT): reports: Tonsil/Adenoidectomy Gynecologic: reports: Hysterectomy, Mastectomy Exam General: Alert, Oriented x3, Cooperative, No acute distress Dental: Dentures full Upper Mouth Openin Fingerbreadth Neck Mobility: Normal Mallampati classification: III Thyromental Distance: 4-6 cm Mental/Cognitive Status: Alert/Oriented X3, Normal for patient Plan Anesthesia Type: MAC Consent for Procedure(s) Verified and Reviewed: Yes Code Status: Attempt Resuscitation ASA classification: 3-Severe systemic disease Is this case an emergency?: No
[2022-09-03] MEDS ORDERED: fentaNYL 100 MCG/2 ML VIAL ONE (13:04)
[2022-09-03] MEDS ORDERED: MIDAZOLAM 2 MG/2 ML VIAL ONE (13:04)
[2022-09-03] MEDS ORDERED: BRIMONIDINE 0.2% OPHTH DROPS 5 ML OPTH ONE (13:26)
[2022-09-03] MEDS ORDERED: EPINEPHrine 1 MG/ML AMP IR ONE (13:27)
[2022-09-03] MEDS ORDERED: BSS/LIDOCAINE/EPINEPHRINE 1 ML SYRINGE IO ONE (13:27)
[2022-09-03] MEDS ORDERED: TIMOLOL 0.5% OPHTH DROPS OPTH ONE (13:27)
[2022-09-03] MEDS ORDERED: PROPARACAINE 0.5% OPHTH DROPS 15 ML EACHEYE ONE (13:28)
[2022-09-03] MEDS ORDERED: VANCOMYCIN OPHTH (TOPICAL) 10 MG/ML SYRINGE TOP ONE (13:28)
[2022-09-03] MEDS ORDERED: TRIAMCIN/MOXIFLOX OPHTHALMIC 0.6 ML VIAL IO ONE ×2 (13:28→13:50)
[2022-09-03] MEDS ORDERED: LACTATED RINGERS 1,000 ML IV ONE (13:46)
[2022-09-03] MEDS ORDERED: BRIMONIDINE 0.2% OPHTH DROPS 5 ML ONE (13:50)
[2022-09-03] MEDS ORDERED: BSS/LIDOCAINE/EPINEPHRINE 1 ML VIAL ONE (13:50)
[2022-09-03] MEDS ORDERED: TIMOLOL 0.5% OPHTH DROPS ONE (13:50)
[2022-09-03] MEDS ORDERED: VANCOMYCIN OPHTH (TOPICAL) 10 MG/ML SYRINGE ONE (13:50)
[2022-09-03] MEDS ORDERED: EPINEPHrine 1 MG/ML AMP ONE (13:50)
--- NOTE | 2022-09-03 13:51 | OPERATIVE REPORT ---
Operative Report - Other Other Information/Narrative: Date of Surgery: 09/03/22 Preop Dx: Visually significant cataract right eye. This was the first cataract surgery. Postop Dx: Same Procedure: Phacoemulsification with posterior chamber intraocular lens implant right eye Surgeon: Dr. Robert Rios Anesthesia: Monitored anesthesia care Complications: None Operative Indications: This is a 71-year-old F with progressive vision loss in the right eye due to 2+ nuclear sclerotic and vacular cataract. Best corrected visual acuity was 20/25 with glare to 20/50 vision in the right eye. Indications for surgery were: - Overall decrease in vision - Difficulty seeing words on a computer screen - Difficulty reading - Difficulty seeing words, closed captions, or game scores on TV - Difficulty seeing street signs - Difficulty driving in low light or at night - Difficulty driving at night because of headlights from other vehicles - Difficulty with glare or bright lights in any situation The patient was consented at length concerning the risks and benefits of cataract surgery after which the patient expressed a desire to proceed with surgery. Operative Procedure: The patient was taken into OR#3 and placed under monitored anesthesia care. A surgical time-out was conducted confirming correct patient, correct procedure, and correct surgical site. The patient was given topical anesthesia and then prepped and draped in the usual sterile fashion. The eye was entered at the 6 and 3 oclock positions. Intracameral Shugarcaine was injected into the anterior chamber followed by a dispersive viscoelastic. A continuous-tear curvilinear capsulorhexis was performed. The nucleus was hydrodissected and phacoemulsified. The cortex was evacuated using automated infusion and aspiration. Toward the end of cortical clean-up a posterior capsule rupture occurred and appeared to be too large to support an in-the-bag IOL. A cohesive viscoelastic was injected into the ciliary sulcus and a 20.0 diopter 3-piece intraocular lens was inserted into the ciliary sulcus. No vitreous appeared to be present in the anterior chamber. Infusion and aspiration were used to evacuate the viscoelastic materials from the eye. The wounds were hydrated and the eye inflated to physiologic pressure using balanced salt solution. Approximately 0.25ml of a mixture of triamcinolone and moxifloxacin was injected trans-sclerally into the vitreous in the inferotemporal quadrant using a 30 gauge cannula. An additional 0.55ml of a mixture of triamcinolone, moxifloxacin, and vancomycin was injected subconjunctivally in the superior quadrant for infection and inflammation prophylaxis. Wound integrity was checked with Weck-Angeles sponges and there was no vitreous present at the wound. The patient was taken from the operating room in good condition, informed of the posterior chamber rupture and it's possible ramifications, and given post-op instructions.
--- NOTE | 2022-09-03 14:01 | ANESTHESIA POST OP EVALUATION ---
Anesthesia Post Eval - Post Anesthesia Eval Vitals: Last Vital Signs Temp 36.6 C 09/03/22 13:47 Pulse 90 09/03/22 13:47 Resp 16 09/03/22 13:47 BP 150/56 H 09/03/22 13:47 Pulse Ox 98 09/03/22 13:47 O2 Flow Rate CV Function Including HR & BP: Stable Pain Control: Satisfactory Nausea & Vomiting: Negative Mental Status: Baseline Respiratory Status: Airway Patent Hydration Status: Satisfactory Anesthesia Complications: None
[2022-09-03 14:04] VITALS: BP 144/67
== END 2022-09-03 10:51 | disposition home or self-care (01) ==
LOC: SDS 10:50
PROVIDERS: ATTEND Ophthalmology
DX: H25.11 Age-related nuclear cataract, right eye (principal); E66.01 Morbid (severe) obesity due to excess calories; Z68.41 Body mass index [BMI] 40.0-44.9, adult; Z87.891 Personal history of nicotine dependence
CPT/HCPCS: 66984; A9270; J3490; J7120; V2632

== ENCOUNTER 2023-01-14 07:30 | Day surgery (SDC) | payer MEDICARE, MEDICAID ==
[2023-01-14] MEDS ORDERED: LACTATED RINGERS 1,000 ML IV ONE (07:35)
[2023-01-14] MEDS ORDERED: PHENYLEPHRINE 2.5% OPHTH 2 ML DROPS LEFTEYE ONE ×2 (07:59)
[2023-01-14] MEDS ORDERED: PROPARACAINE 0.5% OPHTH DROPS 15 ML LEFTEYE ONE ×3 (07:59→09:22)
[2023-01-14] MEDS ORDERED: CYCLOPENTOLATE 1% OPHTH DROPS 2 ML LEFTEYE ONE ×2 (07:59)
[2023-01-14] MEDS ORDERED: CYCLOPENTOLATE 1% OPHTH DROPS 2 ML ONE (08:27)
[2023-01-14] MEDS ORDERED: KETOROLAC 0.45% OPHTH DROPS ONE (08:27)
[2023-01-14] MEDS ORDERED: PROPARACAINE 0.5% OPHTH DROPS 15 ML ONE (08:27)
[2023-01-14] MEDS ORDERED: PHENYLEPHRINE 2.5% OPHTH 2 ML DROPS ONE (08:27)
--- NOTE | 2023-01-14 08:49 | ANESTHESIA ---
Pre-Anesthesia VS, & Labs - Diagnosis left eye nuclear cataract - Procedure left eye cataract extraction with IOL implant Vital Signs: Temp Pulse Resp BP Pulse Ox O2 Flow Rate 36 C L 82 18 165/67 H 95 01/14/23 07:43 01/14/23 07:43 01/14/23 07:43 01/14/23 07:43 01/14/23 07:43 Height: 5 ft 2 in Weight (kg): 106 kg Body Mass Index: 42.7 BMI Classification: Morbidly Obese - NPO >8 hours - Is Patient ?: No Home Medications and Allergies Home Medications: Ambulatory Orders Acetaminophen [Tylenol Arthritis] 1 tab PO DAILY 01/14/23 Ferrous Sulfate 325 mg PO DAILY 11/23/19 Pantoprazole Sodium [Protonix] 40 mg PO DAILY 11/23/19 Sertraline HCl 100 mg PO DAILY 11/23/19 Simvastatin 40 mg PO QPM 11/23/19 Trazodone HCl 150 mg PO QPM PRN 11/23/19 Acetaminophen [Tylenol Arthritis] 1 tab PO DAILY 01/14/23 Allergies/Adverse Reactions: Allergies Allergy/AdvReac Type Severity Reaction Status Date / Time shellfish derived Allergy Anaphylaxis Verified 11/23/19 14:41 Anes History & Medical History - Anesthetic History Anesthesia Complications: reports: No previous complications - Medical History Cardiovascular: reports: High cholesterol Pulmonary: reports: None Gastrointestinal: reports: GERD, Chronic constipation, Ulcerative colitis Urinary: reports: Chronic bladder infection Neuro: reports: None Musculoskeletal: reports: Osteoarthritis Endocrine/Autoimmune: reports: None Blood Disorders: reports: Anemia Skin: reports: Psoriasis Smoking Status: Former smoker (quit 1986) Psychosocial: reports: No issues indicated History of Cancer?: No - Surgical History General: reports: Colonoscopy Eyes Ears Nose Throat (EENT): reports: Cataracts, Tonsil/Adenoidectomy Gynecologic: reports: Hysterectomy, Mastectomy Exam General: Alert, Oriented x3, Cooperative, No acute distress Dental: Dentures full Upper, Partials Lower Mouth Openin Fingerbreadth Neck Mobility: Normal Mallampati classification: III Thyromental Distance: 4-6 cm Mental/Cognitive Status: Alert/Oriented X3, Normal for patient Plan Anesthesia Type: MAC Consent for Procedure(s) Verified and Reviewed: Yes Code Status: Attempt Resuscitation ASA classification: 2-Mild systemic disease Is this case an emergency?: No
[2023-01-14] MEDS ORDERED: fentaNYL 100 MCG/2 ML VIAL ONE (09:03)
[2023-01-14] MEDS ORDERED: MIDAZOLAM 2 MG/2 ML VIAL ONE (09:03)
[2023-01-14] MEDS ORDERED: EPINEPHrine 1 MG/ML AMP ONE (09:05)
[2023-01-14] MEDS ORDERED: TIMOLOL 0.5% OPHTH DROPS ONE (09:05)
[2023-01-14] MEDS ORDERED: TRIAMCIN/MOXIFLOX OPHTHALMIC 0.6 ML VIAL IO ONE ×2 (09:05→09:22)
[2023-01-14] MEDS ORDERED: BRIMONIDINE 0.2% OPHTH DROPS 5 ML ONE (09:05)
[2023-01-14] MEDS ORDERED: BSS/LIDOCAINE/EPINEPHRINE 1 ML VIAL ONE (09:06)
[2023-01-14] MEDS ORDERED: VANCOMYCIN OPHTH (TOPICAL) 10 MG/ML SYRINGE ONE (09:06)
[2023-01-14] MEDS ORDERED: EPINEPHrine 1 MG/ML AMP IR ONE (09:21)
[2023-01-14] MEDS ORDERED: BRIMONIDINE 0.2% OPHTH DROPS 5 ML OPTH ONE (09:21)
[2023-01-14] MEDS ORDERED: BSS/LIDOCAINE/EPINEPHRINE 1 ML SYRINGE IO ONE (09:22)
[2023-01-14] MEDS ORDERED: TIMOLOL 0.5% OPHTH DROPS OPTH ONE (09:22)
[2023-01-14] MEDS ORDERED: VANCOMYCIN OPHTH (TOPICAL) 10 MG/ML SYRINGE TOP ONE (09:22)
--- NOTE | 2023-01-14 09:34 | OPERATIVE REPORT ---
Operative Report - Other Other Information/Narrative: Date of Surgery: 01/14/23 Preop Dx: Visually significant cataract left eye. Cataract surgery was performed in the right eye on . Postop Dx: Same Procedure: Phacoemulsification with posterior chamber intraocular lens implant left eye Surgeon: Dr. Robert Rios Anesthesia: Monitored anesthesia care Complications: None Operative Indications: This is a 72-year-old F with progressive vision loss in the left eye due to 2+ nuclear sclerotic cataract. Best corrected visual acuity was 20/30 with glare to 20/60 vision in the left eye. Indications for surgery were: - Overall decrease in vision - Difficulty seeing words on a computer screen - Difficulty seeing words, closed captions, or game scores on TV - Difficulty seeing street signs - Difficulty driving in low light or at night - Difficulty driving at night because of headlights from other vehicles The patient was consented at length concerning the risks and benefits of cataract surgery after which the patient expressed a desire to proceed with surgery. Operative Procedure: The patient was taken into OR#3 and placed under monitored anesthesia care. A surgical time-out was conducted confirming correct patient, correct procedure, and correct surgical site. The patient was given topical anesthesia and then prepped and draped in the usual sterile fashion. The eye was entered at the 6 and 3 oclock positions. Intracameral Shugarcaine was injected into the anterior chamber followed by a dispersive viscoelastic. A continuous-tear curvilinear capsulorhexis was performed. The nucleus was hydrodissected and phacoemulsified. The cortex was evacuated using automated infusion and aspiration. A cohesive viscoelastic was injected into the capsular bag and a 21.5 diopter intraocular lens was inserted into the bag. Infusion and aspiration were used to evacuate the viscoelastic materials from the eye. The wounds were hydrated and the eye inflated to physiologic pressure using balanced salt solution. Approximately 0.25ml of a mixture of triamcinolone and moxifloxacin was injected trans-sclerally into the vitreous in the inferotemporal quadrant using a 30 gauge cannula. An additional 0.25ml of a mixture of triamcinolone and moxifloxacin was injected subconjunctivally in the superior quadrant for infection and inflammation prophylaxis. Wound integrity was checked with Weck-Angeles sponges. The patient was taken from the operating room in good condition and given post-op instructions.
[2023-01-14] MEDS ORDERED: LACTATED RINGERS 650 ML IV ONE (09:36)
[2023-01-14 09:46] VITALS: BP 127/50
--- NOTE | 2023-01-14 12:10 | ANESTHESIA POST OP EVALUATION ---
Anesthesia Post Eval - Post Anesthesia Eval Vitals: Last Vital Signs Temp 36.3 C L 01/14/23 09:45 Pulse 76 01/14/23 09:45 Resp 16 01/14/23 09:45 BP 127/50 L 01/14/23 09:45 Pulse Ox 93 01/14/23 09:45 O2 Flow Rate CV Function Including HR & BP: Stable Pain Control: Satisfactory Nausea & Vomiting: Negative Mental Status: Baseline Respiratory Status: Airway Patent Hydration Status: Satisfactory Anesthesia Complications: None
== END 2023-01-14 07:31 | disposition home or self-care (01) ==
LOC: SDS 07:30
PROVIDERS: ATTEND Ophthalmology
DX: H25.12 Age-related nuclear cataract, left eye (principal); Z98.41 Cataract extraction status, right eye; E66.01 Morbid (severe) obesity due to excess calories; Z68.41 Body mass index [BMI] 40.0-44.9, adult; Z87.891 Personal history of nicotine dependence
CPT/HCPCS: 66984; A9270; J3490; J7120

== ENCOUNTER 2023-06-29 20:02 | Outpatient (CLI) | payer MEDICARE, MEDICAID | END 2023-06-29 20:03 | disposition critical access hospital (66) | LOC: EMS 20:02 | DX: R20.0 Anesthesia of skin (principal); F41.9 Anxiety disorder, unspecified | CPT/HCPCS: A0425; A0429 ==

== ENCOUNTER 2023-06-29 20:36 | Emergency (ER) | payer MEDICARE, MEDICAID ==
--- NOTE | 2023-06-29 21:34 | ED Physician Documentation ---
History of Present Illness - Stated complaint Stated Complaint: LT LOWER LEG NUMBNESS - Chief complaint Chief Complaint: Ext Problem - History obtained from History obtained from: Patient - History of Present Illness Pain level max: 5 Pain level now: 3 - Additonal information Additional information: Patient is a 72-year-old female who presents to the emergency department complaining of left-sided tingling today. She states it is in her left arm and left leg. Nothing seems to make it better or worse. She states the 2 days ago she fell backwards against a wall injuring her head, neck left upper back and low back. No loss of bowel or bladder control. She states that her pain has improved. No loss of consciousness. Does not take any blood thinners. No loss of motor function. 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 Review of Systems Constitutional: denies: Fever, Chills Nose: denies: Rhinorrhea / runny nose, Congestion Respiratory: denies: Cough GI: denies: Nausea, Vomiting, Diarrhea Skin: denies: Rash Musculoskeletal: denies: Neck pain, Back pain Neurologic: denies: Headache PD PAST MEDICAL HISTORY - Past Medical History Cardiovascular: High cholesterol Respiratory: None Neuro: None Endocrine/Autoimmune: None GI: GERD, Chronic constipation, Ulcerative colitis SHIRT SEWER: Breast cancer, Other : Chronic bladder infection HEENT: Chronic vision loss Psych: Depression, Post traumatic stress disorder Musculoskeletal: Osteoarthritis Derm: Psoriasis - Past Surgical History Past Surgical History: Yes General: Colonoscopy /SHIRT SEWER: Hysterectomy, Mastectomy HEENT: Cataracts, Tonsil/Adenoidectomy - Present Medications Home Medications: Ambulatory Orders Medication Instructions Recorded Confirmed Ferrous Sulfate 325 mg PO DAILY 11/23/19 01/14/23 Pantoprazole Sodium [Protonix] 40 mg PO DAILY 11/23/19 01/14/23 Sertraline HCl 100 mg PO DAILY 11/23/19 01/14/23 Simvastatin 40 mg PO QPM 11/23/19 01/14/23 Trazodone HCl 150 mg PO QPM PRN 11/23/19 01/14/23 Acetaminophen [Tylenol Arthritis] 1 tab PO DAILY 01/14/23 01/14/23 - Allergies Allergies/Adverse Reactions: Allergies Allergy/AdvReac Type Severity Reaction Status Date / Time shellfish derived Allergy Anaphylaxis Verified 06/29/23 20:45 - Social History Does the pt smoke?: No Smoking Status: Former smoker (quit 1986) Does the pt drink ETOH?: No Does the pt have substance abuse?: No - Immunizations Immunizations are current?: Yes - POLST Patient has POLST: No PD ED PE NORMAL - Vitals Vital signs reviewed: Yes - General General: Alert and oriented X 3, Well developed/nourished, Other (Patient appears anxious.) - HEENT HEENT: Atraumatic, PERRL, Moist mucous membranes - Neck Neck: Supple, no meningeal sign - Cardiac Cardiac: RRR - Respiratory Respiratory: No respiratory distress, Clear bilaterally - Abdomen Abdomen: Soft, Non tender, Non distended - Derm Derm: Warm and dry - Extremities Extremities: Other (Mild bruising and swelling to the left calf.) - Neuro Neuro: Alert and oriented X 3, clothing man 2-12 intact, No motor deficit, Other (Mild decrease sensation over the left arm diffusely and left leg diffusely.) Eye Opening: Spontaneous Motor: Obeys Commands Verbal: Oriented GCS Score: 15 Results - Vitals Vitals: Vital Signs - 24 hr 06/29/23 06/29/23 06/29/23 20:40 21:33 23:55 Temperature 36.8 C Heart Rate 88 89 70 Respiratory 18 20 18 Rate Blood Pressure 169/73 H 90/72 158/74 H O2 Saturation 100 100 98 Oxygen O2 Source Room air - Labs Labs: Laboratory Tests 06/29/23 06/29/23 21:46 21:46 WBC 8.3 RBC 4.51 Hgb 12.4 Hct 38.5 MCV 85.4 MCH 27.5 MCHC 32.2 RDW 13.9 Plt Count 409 MPV 8.9 Neut # (Auto) 5.6 Lymph # (Auto) 1.8 [place] # (Auto) 0.7 Eos # (Auto) 0.1 Baso # (Auto) 0.1 Absolute Nucleated RBC 0.00 Nucleated RBC % 0.0 Sodium 137 Potassium 3.6 Chloride 101 Carbon Dioxide 25 Anion Gap 11.0 BUN 13 Creatinine 0.6 Estimated GFR (MDRD) 99 Glucose 100 Calcium 9.8 Total Bilirubin 0.6 AST 15 ALT 13 Alkaline Phosphatase 60 Total Protein 7.3 Albumin 4.3 Globulin 3.0 Albumin/Globulin Ratio 1.4 Lipase 31 PD Medical Decision Making - ED course Complexity details: reviewed results, re-evaluated patient, considered differential, d/w patient ED course: Patient with paresthesias of the left arm and left leg after a fall. She does have some tenderness in her neck and posterior aspect of her head. Therefore head CT, cervical spine CT were ordered. Also has tenderness over the left scapula area, chest without contrast ordered. Given the lower extremity numbness, a CT of the L-spine was ordered. She is concerned about a DVT in the leg and does have some swelling and bruising in the leg, ultrasound is negative. No significant lab abnormalities. Does not have any significant numbness on exam. Patient will be signed out to Dr. Hall awaiting CT scan. Assuming CT scans are negative, patient can likely be discharged home. Patient is quite anxious appearing, paresthesias may be secondary to hyperventilation. This document was made in part using voice recognition software. While efforts are made to proofread this document, sound alike and grammatical errors may occur. Departure - Departure Clinical Impression: Paresthesia Condition: Stable Forms: PCP List
[2023-06-29 21:50] LABS: BASOPHILS # (AUTO) 0.1 10^3/uL (0.0-0.1); BASOPHILS % (AUTO) 0.7 %; EOSINOPHILS # (AUTO) 0.1 10^3/uL (0.0-0.7); EOSINOPHILS % (AUTO) 1.1 %; HCT - HEMATOCRIT 38.5 % (37.0-47.0); HGB - HEMOGLOBIN 12.4 g/dL (12.0-16.0); LYMPHOCYTES # (AUTO) 1.8 10^3/uL (1.5-3.5); LYMPHOCYTES % (AUTO) 21.7 %; MEAN CORPUSCULAR HEMOGLOBIN 27.5 pg (27.0-31.0); MEAN CORPUSCULAR HGB CONC 32.2 g/dL (32.0-36.0); MEAN CORPUSCULAR VOLUME 85.4 fL (81.0-99.0); MEAN PLATELET VOLUME 8.9 fL (7.9-10.8); MONOCYTES # (AUTO) 0.7 10^3/uL (0.0-1.0); MONOCYTES % (AUTO) 8.1 %; NEUTROPHILS # (AUTO) 5.6 10^3/uL (1.5-6.6); NEUTROPHILS % (AUTO) 68.2 %; PLT - PLATELET COUNT 409 10^3/uL (130-450); RED BLOOD COUNT 4.51 10^6/uL (4.20-5.40); RED CELL DISTRIBUTION WIDTH 13.9 % (12.0-15.0); WHITE BLOOD COUNT 8.3 x10^3/uL (4.8-10.8)
[2023-06-29 22:07] LABS: ALBUMIN 4.3 g/dL (3.2-5.5); ALBUMIN/GLOBULIN RATIO 1.4 (1.0-2.2); BILIRUBIN,TOTAL 0.6 mg/dL (0.2-1.0); CALCIUM 9.8 mg/dL (8.5-10.3); CREATININE 0.6 mg/dL (0.6-1.3); POTASSIUM 3.6 mmol/L (3.5-4.5); TOTAL PROTEIN 7.3 g/dL (6.4-8.9)
--- NOTE | 2023-06-29 22:32 | Ultrasound Report ---
PROCEDURE: Duplex Ext Veins Left INDICATIONS: LLE pain, swelling TECHNIQUE: Real-time imaging, as well as color and pulse Doppler interrogation, were performed of the lower extr emity deep veins from the inguinal ligament to the popliteal fossa. Attempted visualization of the ca lf veins was performed. COMPARISON: None. FINDINGS: The deep veins are normally compressible, and free of intraluminal thrombus. Color and pu lse Doppler demonstrate normal phasic intraluminal flow. There is normal augmentation response to di stal compression maneuver. IMPRESSION: No deep venous thrombosis of the visualized lower extremity. Suspected anterior knee effusion. Reviewed by: Los Arreola MD on 06/29/2023 10:31 PM PDT Approved by: Los Arreola MD on 06/29/2023 10:31 PM PDT Station ID: [id number]
[2023-06-30 00:03] VITALS: BP 158/74; O2SAT 98
--- NOTE | 2023-06-30 00:33 | ED Physician Documentation ---
ED Addendum - Addendum Addendum: 06/30/23 00:32 The patient was signed out to me at change of shift, pending CT scans after noticing some numbness on her left side. The patient initially had plan to stay for the CTs but I was informed by nursing staff that the patient had decided that she has arrived now and she needs to get home and does not feel that she needs to stay for the CTs after all. Nursing staff reported that the patient was walking out as we spoke. The patient left before I was able to evaluate her or speak with her. Final impression: See original note Disposition: Eloped 06/30/23 00:33
== END 2023-06-30 00:58 | disposition left against medical advice (07) ==
LOC: EDUNIT# → ED 20:36
DX: R20.0 Anesthesia of skin (principal); Z87.891 Personal history of nicotine dependence
CPT/HCPCS: 36415; 80053; 83690; 85025; 99283; 99284

== ENCOUNTER 2023-07-16 07:51 | Outpatient (CLI) | payer MEDICARE, MEDICAID ==
[2023-07-16 14:24] LABS: BASOPHILS # (AUTO) 0.1 10^3/uL (0.0-0.1); BASOPHILS % (AUTO) 1.1 %; EOSINOPHILS # (AUTO) 0.2 10^3/uL (0.0-0.7); EOSINOPHILS % (AUTO) 2.8 %; HCT - HEMATOCRIT 40.3 % (37.0-47.0); HGB - HEMOGLOBIN 12.4 g/dL (12.0-16.0); LYMPHOCYTES # (AUTO) 2.1 10^3/uL (1.5-3.5); LYMPHOCYTES % (AUTO) 34.7 %; MEAN CORPUSCULAR HEMOGLOBIN 27.1 pg (27.0-31.0); MEAN CORPUSCULAR HGB CONC 30.8 g/dL (32.0-36.0); MEAN CORPUSCULAR VOLUME 88.2 fL (81.0-99.0); MEAN PLATELET VOLUME 9.6 fL (7.9-10.8); MONOCYTES # (AUTO) 0.6 10^3/uL (0.0-1.0); MONOCYTES % (AUTO) 9.9 %; NEUTROPHILS # (AUTO) 3.2 10^3/uL (1.5-6.6); NEUTROPHILS % (AUTO) 51.3 %; PLT - PLATELET COUNT 457 10^3/uL (130-450); RED BLOOD COUNT 4.57 10^6/uL (4.20-5.40); RED CELL DISTRIBUTION WIDTH 14.5 % (12.0-15.0); WHITE BLOOD COUNT 6.1 x10^3/uL (4.8-10.8)
[2023-07-16 14:48] LABS: ALBUMIN 4.3 g/dL (3.2-5.5); ALBUMIN/GLOBULIN RATIO 1.7 (1.0-2.2); ALKALINE PHOSPHATASE 55 IU/L (42-121); ALT ALANINE AMINOTRANSFERASE 15 IU/L (10-60); AST ASPARTATE AMINOTRANSFERASE 20 IU/L (10-42); BILIRUBIN,TOTAL 0.8 mg/dL (0.2-1.0); BUN - BLOOD UREA NITROGEN 10 mg/dL (6-20); CALCIUM 9.5 mg/dL (8.5-10.3); CARBON DIOXIDE - CO2 29 mmol/L (21-32); CHLORIDE 101 mmol/L (101-111); CHOL/HDL RATIO 3.9 (<4.4); CHOLESTEROL 243 mg/dL; CREATININE 0.6 mg/dL (0.6-1.3); GFR - MDRD 99 (>89); GLUCOSE 98 mg/dL (74-104); HDL CHOLESTEROL 62 mg/dL; LDL CHOLESTEROL,CALCULATED 152 mg/dL; LDL/HDL RATIO 2.5 (<4.4); POTASSIUM 4.3 mmol/L (3.5-4.5); SODIUM 137 mmol/L (135-145); TOTAL PROTEIN 6.9 g/dL (6.4-8.9); TRIGLYCERIDES 147 mg/dL (48-352); VLDL CHOLESTEROL 29 mg/dL
[2023-07-16 14:59] LABS: THYROID STIMULATING HORMONE 2.26 uIU/mL (0.34-5.60)
== END 2023-07-16 07:52 | disposition home or self-care (01) ==
LOC: LAB.S 07:51
PROVIDERS: ATTEND Registered Nurse
DX: E78.5 Hyperlipidemia, unspecified (principal); Z79.899 Other long term (current) drug therapy
CPT/HCPCS: 36415; 80053; 80061; 83721; 84443; 85025

== ENCOUNTER 2023-07-16 08:00 | Outpatient (CLI) | payer MEDICARE, MEDICAID | END 2023-07-16 23:59 | disposition home or self-care (01) | LOC: LAB 08:00 | PROVIDERS: ATTEND Physician Assistant | DX: N39.0 Urinary tract infection, site not specified (principal); E78.5 Hyperlipidemia, unspecified; Z79.899 Other long term (current) drug therapy | CPT/HCPCS: 36415; 80053; 80061; 83721; 84443; 85025; 87086; 87181 ==

== ENCOUNTER 2023-09-13 08:00 | Outpatient (CLI) | payer MEDICARE, MEDICAID ==
[2023-09-13 20:43] LABS: BILIRUBIN,URINE NEGATIVE (NEGATIVE); GLUCOSE, URINE (UA) NEGATIVE (NEGATIVE); KETONES,URINE (UA) NEGATIVE (NEGATIVE); LEUKOCYTE ESTERASE, URINE MODERATE (NEGATIVE); NITRITE,URINE NEGATIVE (NEGATIVE); OCCULT BLOOD,URINE NEGATIVE (NEGATIVE); PH,URINE 6.5 PH (5.0-7.5); PROTEIN,URINE NEGATIVE (NEGATIVE); UROBILINOGEN,URINE 0.2 (NORMAL) E.U./dL (NORMAL)
[2023-09-13 20:46] LABS: CLARITY,URINE HAZY (CLEAR)
[2023-09-13 21:16] LABS: RBC,URINE 0-5 /HPF (0-5); WBC,URINE >25 /HPF (0-5)
[2023-09-13 21:17] LABS: BACTERIA,URINE Few /HPF (None Seen); MUCUS,URINE Few Strands; SQUAMOUS EPITHELIAL CELL,UR NONE SEEN (<= Few)
== END 2023-09-13 23:59 | disposition home or self-care (01) ==
LOC: LAB.S 08:00
PROVIDERS: ATTEND Emergency Medicine
DX: R30.0 Dysuria (principal)
CPT/HCPCS: 81001; 87086

== ENCOUNTER 2023-12-21 07:00 | Outpatient (CLI) | payer MEDICARE, MEDICAID | END 2023-12-21 23:59 | disposition home or self-care (01) | LOC: LAB.S 07:00 | PROVIDERS: ATTEND Registered Nurse | DX: R82.79 Other abnormal findings on microbiological examination of urine (principal); R30.0 Dysuria; R39.15 Urgency of urination | CPT/HCPCS: 87086 ==